=== PATIENT | male | born 1990 | race Caucasian/White ===

== ENCOUNTER 2017-08-17 09:44 | Emergency (ER) | payer OTHER ==
[2017-08-17 09:50] VITALS: BP 131/87
[2017-08-17 10:25] LABS: GLUCOSE, URINE (UA) NEGATIVE (NEGATIVE); KETONES,URINE (UA) NEGATIVE (NEGATIVE); LEUKOCYTE ESTERASE, URINE NEGATIVE (NEGATIVE); NITRITE,URINE NEGATIVE (NEGATIVE); OCCULT BLOOD,URINE NEGATIVE (NEGATIVE); PROTEIN,URINE NEGATIVE (NEGATIVE); UROBILINOGEN,URINE 0.2 (NORMAL) E.U./dL (NORMAL)
[2017-08-17 10:34] LABS: BILIRUBIN,URINE NEGATIVE (NEGATIVE); CLARITY,URINE CLEAR (CLEAR); ICTOTEST,URINE NEGATIVE
[2017-08-17] MEDS ORDERED: AZITHROMYCIN 250 MG TABLET PO STA (11:04)
[2017-08-17] MEDS ORDERED: LIDOCAINE 1% 2 ML VIAL SUBQ ONE (11:04)
[2017-08-17] MEDS ORDERED: cefTRIAXone 250 MG VIAL IM STA (11:04)
--- NOTE | 2017-08-17 11:06 | ED Physician Documentation ---
History of Present Illness - Stated complaint Stated Complaint: PELVIC PX - Chief complaint Chief Complaint: Abd Pain - Additonal information Additional information: hx from pt 26 male [place] to ER with pelvic pain and penil swelling states he doesn't think he is at risk for STDs but also states more than one partner and does not always use condoms + chills no fever no abd pain otherwsie no NVD no dysuria Review of Systems Constitutional: denies: Fever, Chills Throat: denies: Sore throat Cardiac: denies: Chest pain / pressure Respiratory: denies: Dyspnea GI: denies: Abdominal Pain, Nausea, Vomiting, Diarrhea : denies: Dysuria Endocrine: denies: Easy bruising / bleeding Immunocompromised: denies: Immunocompromised PD PAST MEDICAL HISTORY - Present Medications Home Medications: Ambulatory Orders Medication Instructions Recorded Confirmed No Known Home Medications [No 08/17/17 08/17/17 Known Home Medications] - Allergies Allergies/Adverse Reactions: Allergies Allergy/AdvReac Type Severity Reaction Status Date / Time No Known Drug Allergies Allergy Verified 08/17/17 09:50 PD ED PE NORMAL - Vitals Vital signs reviewed: Yes - General General: Alert and oriented X 3 - HEENT HEENT: PERRL - Neck Neck: Supple, no meningeal sign - Cardiac Cardiac: RRR - Respiratory Respiratory: No respiratory distress, Clear bilaterally - Abdomen Abdomen: Soft, Non tender - Male Male : Other (L > R inguinal adenopathy with erythema on L, testes desc and NT nl lie no mass appreciated, approx 1 cm diameter crusted lesions to dorsal penile shaft, small amt clear dc, some penille inflammation as well) Results - Vitals Vitals: Vital Signs - 24 hr 08/17/17 09:47 Temperature 36.8 C Heart Rate 120 H Respiratory 16 Rate Blood Pressure 131/87 H O2 Saturation 98 Oxygen O2 Source Room air - Labs Labs: Laboratory Tests 08/17/17 10:10 Urine Color DARK YELLOW Urine Clarity CLEAR Urine pH 6.0 Ur Specific [place] >=1.030 H Urine Protein NEGATIVE Urine Glucose (UA) NEGATIVE Urine Ketones NEGATIVE Urine Occult Blood NEGATIVE Urine Nitrite NEGATIVE Urine Bilirubin NEGATIVE Urine Urobilinogen 0.2 (NORMAL) Ur Leukocyte Esterase NEGATIVE Ur Microscopic Review NOT INDICATED Urine Culture Comments NOT INDICATED PD MEDICAL DECISION MAKING - ED course ED course: looks most like an STD sent testing for GC chlamydia and syphilis (painless lesion) gave rocephin 250 IM and zithro 1 g PO Departure - Departure Disposition: 01 Home, Self Care Clinical Impression: STD (male) Condition: Good Instructions: ED STD Male Treated Comments: These symptoms are most suggestive of an STD Tests have been sent to the lab for the most common STDs You have been treated with antibiotics that will cover gonorrhea and chlamydia The cultures should be back by next week - the ER staff will call you if they are positive. If your symptoms continue follow up with your PMD for further testing and evaluation such as ultrasound or a biopsy of the swollen lymph nodes Return to the ER if worse Motrin and tylenol as needed for the pain
[2017-08-17] MEDS ORDERED: IBUPROFEN 400 MG TABLET PO STA (11:15)
== END 2017-08-17 11:51 | disposition home or self-care (01) ==
LOC: ED 09:44
DX: A64 Unspecified sexually transmitted disease (principal)
CPT/HCPCS: 36415; 81003; 86780; 87491; 87591; 96372; 99283; A9270; 81001; 87086